=== PATIENT | female | born 1955 | race Caucasian/White ===

== ENCOUNTER → 2016-04-11 | Day surgery (SDC) | payer BC ==
[2016-04-09 10:53] VITALS: BMI 24.2
[~2016-04-11] MED LIST: ALBUTEROL NEB (CONC) 2.5 MG/0.5 ML INHALATION ONE; LACTATED RINGERS 1,000 ML IV ONE; LACTATED RINGERS 1,000 ML IV SCH; LIDOCAINE 1% 20 ML VIAL (10MG/ML) FOR IV START INTRADERMA ONE; LIDOCAINE 1% INJ 10MG/ML (20 ML MDV) ONE; LIDOCAINE 2% (PF) 20 MG/ML 10ML INHALATION ONE; PROPOFOL 10 MG/ML 20 ML VIAL IV ONE; Pre Op ABX Message 1 EACH MISC MISCELLANE ONE; fentaNYL (PF) 50 MCG/ML 2 ML AMP ONE
[2016-04-11 11:07] VITALS: TEMP 97.2
[2016-04-11 12:31] VITALS: BP 125/79; PULSE 84; RESP 16
[2016-04-11 17:51] LABS: RBC, Body Fluid 9 /uL
--- NOTE | 2016-04-11 19:36 | PCN ---
DATE OF PROCEDURE: OPERATIVE REPORT: Bronchoscopy and bronchoalveolar lavage of the right middle lobe. PREOPERATIVE DIAGNOSIS: Recurrent right middle lobe pneumonia. POSTOPERATIVE DIAGNOSIS: Right middle lobe syndrome. ANESTHESIA: Patient was given IV conscious sedation. Please refer to dictation and documentation from [employer]. PROCEDURE: Patient was prepared according to the bronchoscopy protocol. She was placed in a supine position. We were able to monitor her pulse oximetry continuously. Blood pressure was intermittently monitored. Cardiac rhythm was continuously monitored. After adequate IV conscious sedation, the right naris was anesthetized using a few mL of lidocaine. Then the bronchoscope was inserted through the right naris down to the area of the vocal cord. Vocal cords were noted to be patent and no evidence of any abnormality around the vocal cords. Lidocaine was applied over the vocal cords and the bronchoscope was advanced further down and a thorough examination was done of the trachea, clara, right upper lobe, right middle lobe, right lower lobe, left upper lobe, lingula, and left lower lobe. No significant abnormality except there was a slitlike narrowing of the right middle lobe bronchus, however, I was able to advance the bronchoscope into the right middle lobe, and I visualized easily the lateral segment and the medial segment of the right middle lobe. Lavage of the right middle lobe was performed, and there was very minimal purulent secretions from the right middle lobe. Examination of the other lobes were unremarkable. Pictures of the right middle lobe were taken, and the findings are consistent with narrow opening of the right middle lobe bronchus and slitlike opening of the bronchus itself which explains her findings on the chest x-ray and recurrent episodes of right middle lobe pneumonia. The procedure was well tolerated. The fluid from the right middle lobe was sent for different diagnostic studies including cytology. Patient will be reassured, and she will be discharged later today. No evidence of any immediate complications.
== END ==
LOC: ORWHC2ENDO 10:37
PROVIDERS: ATTEND Internal Medicine
DX: J18.9 Pneumonia, unspecified organism (principal); J44.9 Chronic obstructive pulmonary disease, unspecified; J45.909 Unspecified asthma, uncomplicated; K21.9 Gastro-esophageal reflux disease without esophagitis; J30.2 Other seasonal allergic rhinitis; Z79.1 Long term (current) use of non-steroidal anti-inflammatories (NSAID); Z79.51 Long term (current) use of inhaled steroids; Z79.52 Long term (current) use of systemic steroids; Z79.899 Other long term (current) drug therapy; Z88.1 Allergy status to other antibiotic agents; Z87.891 Personal history of nicotine dependence
CPT/HCPCS: 94640; 88108; 88305; 89050; 87070; 87205; 87116; 87102; 87206; 31624; 99156; J2001 ×2; J3010; J2704; 99153

== ENCOUNTER → 2017-05-14 | Outpatient (CLI) | payer OTHER ==
[2017-05-14 08:17] LABS: Basophils % (A) 1 %; Eosinophils # (A) 0.2 k/uL (0-0.7); Eosinophils % (A) 4 %; HCT 41.6 % (34.0-46.0); HGB 13.7 gm/dL (11.4-16.0); Lymphocytes # (A) 1.9 k/uL (1.0-4.8); Lymphocytes % (A) 38 %; MCH 30.5 pg (25.0-35.0); MCHC 32.8 g/dL (31.0-37.0); MCV 93.1 fL (80.0-100.0); Mean Platelet Volume 7.7; Monocytes # (A) 0.3 k/uL (0-1.0); Monocytes % (A) 5 %; Neutrophils # (A) 2.5 k/uL (1.3-7.7); Neutrophils % (A) 50 %; Platelet Count 275 k/uL (150-450); RBC 4.47 m/uL (3.80-5.40); RDW 12.7 % (11.5-15.5)
[2017-05-14 08:34] LABS: ALT 29 U/L (9-52); AST 19 U/L (14-36); Albumin 4.2 g/dL (3.5-5.0); Alkaline Phosphatase 73 U/L (38-126); Anion Gap 8 mmol/L; Blood Urea Nitrogen 15 mg/dL (7-17); Calcium 9.6 mg/dL (8.4-10.2); Carbon Dioxide 31 mmol/L (22-30); Chloride 104 mmol/L (98-107); Glucose 83 mg/dL (74-99); Potassium 4.8 mmol/L (3.5-5.1); Sodium 143 mmol/L (137-145); Total Bilirubin 0.6 mg/dL (0.2-1.3)
[2017-05-14 11:07] LABS: Glucose 2 Hour 88 mg/dL
[2017-05-14 22:07] LABS: Hemoglobin A1C 5.4 % (4.0-6.0)
== END | disposition home or self-care (01) ==
LOC: LABWHC1 07:59
PROVIDERS: ATTEND Family Medicine
DX: R73.9 Hyperglycemia, unspecified (principal)
CPT/HCPCS: 36415; 80053; 82947; 82950; 83036; 83525; 85025

== ENCOUNTER → 2018-07-13 | Outpatient (CLI) | payer OTHER ==
--- NOTE | 2018-07-13 08:16 | CT ---
EXAMINATION TYPE: CT chest wo/w con DATE OF EXAM: 07/13/2018 COMPARISON: None HISTORY: 62-year-old female Chest wall pain by xiphoid TECHNIQUE: Contiguous axial scanning of the chest after the administration of 100 mL of Isovue 300. Coronal/sagittal reconstructions performed. CT DLP: 403.2mGycm. Automatic exposure control utilized for a dose reduction. FINDINGS: Heart normal size without pericardial effusion. Aorta normal caliber with moderate atherosclerotic arch calcifications and aberrant right subclavian artery taking a retroesophageal course. No thoracic lymphadenopathy by CT size criteria. Mild diffuse bronchial wall thickening and minimal centrilobular emphysema. Couple calcified granulomas at the right midlung. 4 mm left midlung pulmonary nodule seems to be located along the major fissure. No consolidation or pleural effusion. Small to moderate-sized hiatal hernia. Hilar splenule. Tiny calcified granuloma inferior right liver lobe. Bones: Degenerative disc disease in the visualized lumbar spine. Accentuated kyphosis at the thoracol umbar junction. No specific abnormality is identified at the level of the xiphoid process. IMPRESSION: 1. COPD with very mild emphysema. 2. Prior granulomatous disease. Noncalcified 4 mm left mid lung pulmonary nodule is located along the major fissure and probably represents a pulmonary lymph node. 1 year follow-up CT recommended to devin ssess. 3. No specific abnormality identified at the level of the xiphoid process. 4. A small to moderate sized hiatal hernia. Incidental aberrant right subclavian artery which takes a retroesophageal course.
== END | disposition home or self-care (01) ==
LOC: RADCTMAIN 07:27
PROVIDERS: ATTEND Family Medicine
DX: J43.9 Emphysema, unspecified (principal); R91.1 Solitary pulmonary nodule
CPT/HCPCS: 71270; Q9967

== ENCOUNTER → 2019-10-10 | Outpatient (CLI) | payer MEDICARE ==
--- NOTE | 2019-10-10 15:36 | CT ---
EXAMINATION TYPE: CT chest w con DATE OF EXAM: 10/10/2019 COMPARISON: CT chest July 13, 2018. HISTORY: Follow up scan CT DLP: 160.9 mGycm. Automated Exposure Control for Dose Reduction was Utilized. TECHNIQUE: CT scan of the thorax is performed following with IV Contrast, patient injected with 100 mL of Isovue 300. FINDINGS: LUNGS: Stable small bleb left upper lobe axial image 20. Stable 4 x 2 mm left mid lung nodule along f issure axial image 34. Stable 3 mm superior left lower lobe nodule axial image 39. Stable 4 to 5 mm c alcified right mid lung nodule or granuloma axial image 33. No new greater than 4 mm noncalcified pu lmonary nodules or masses. There is no pleural effusion or pneumothorax seen bilaterally. Persistent focal linear scarring right mid to lower lung medially near axial image 37 with some adjacent pleura l thickening inferior anterior aspect slightly more nodular axial image 44 unchanged from prior. The tracheobronchial tree is patent. MEDIASTINUM: There are no new greater than 1 cm hilar or mediastinal lymph nodes. No cardiomegaly o r pericardial effusion is seen. Stable small sized hiatal hernia. Persistent left arch with aberrant right brachiocephalic artery running posterior to the esophagus, normal variant. Persistent fairly s evere mixed plaque in the left subclavian artery without greater than 50% significant stenosis OTHER: Single calcification in the liver axial image 99, right hepatic lobe. IMPRESSION: No new or enlarging noncalcified nodules. Findings presumed benign.
== END | disposition home or self-care (01) ==
LOC: RADCTMAIN 14:10
PROVIDERS: ATTEND Internal Medicine
DX: R91.1 Solitary pulmonary nodule (principal); Z88.1 Allergy status to other antibiotic agents; Z88.8 Allergy status to other drugs, medicaments and biological substances
CPT/HCPCS: 71260; Q9967

== ENCOUNTER → 2023-01-14 | Outpatient (CLI) | payer MEDICARE ==
--- NOTE | 2023-01-14 13:03 | CTL ---
EXAMINATION TYPE: CT Low Dose Lung DATE OF EXAM ORDERED: 01/14/2023 HISTORY: 67-year-old female former smoker quit 10 years ago with 2 year pack history. Lung cancer scr eening CT DLP: 56.[address] CTDI: 1.7 mGy Automated exposure control for dose reduction was used. SCREENING VISIT: Baseline COMPARISON: 10/10/2019 TECHNIQUE: Low dose computed tomography scan was performed through the chest with coronal and sagitta l reconstructions. CT DIAGNOSTIC QUALITY: Satisfactory FINDINGS: The heart is normal size without pericardial effusion. Aorta normal caliber with mild atherosclerotic arch calcifications. There is aberrant right subclavia n artery that takes a retroesophageal course. No thoracic lymphadenopathy by CT size criteria. Mild emphysematous changes present. No consolidation or pleural effusion. Stable calcified granuloma lateral right mid lung. Stable for malleolar pulmonary nodule medial right upper lobe, axial image 16. 3 mm pulmonary nodule medial left midlung, axial image 27 is stable. A couple 3 mm pulmonary nodules left lower lobe, axial image 32. Stable 4 mm anterior right lower lung pulmonary nodule, axial image 34. Calcified granuloma redemonstrated lateral right midlung. There is a small to moderate-sized hiatal hernia. Otherwise, visualized upper abdomen shows prominent congestive material within the stomach. Bones: Slight accentuated lower thoracic kyphosis with scattered mild degenerative disc disease. IMPRESSION: 1. LungRADS 2, benign. A few stable 4 mm and smaller pulmonary nodules, one of which represents a ted cified granuloma. 2. COPD with mild emphysema. 3. Incidental aberrant right subclavian artery that takes a retroesophageal course. 4. Small to moderate sized hiatal hernia. CT LUNG RAD AND CT CHEST RECOMMENDATION: Lung-Rad 2 Benign Appearance or Behavior: Continue annual sc reening with LDCT in 12 months. S Modifier (other clinically significant findings): None
== END | disposition home or self-care (01) ==
LOC: RADCTMAIN 10:01
PROVIDERS: ATTEND Internal Medicine
DX: Z12.2 Encounter for screening for malignant neoplasm of respiratory organs (principal); J43.9 Emphysema, unspecified; K44.9 Diaphragmatic hernia without obstruction or gangrene; J84.10 Pulmonary fibrosis, unspecified; R91.8 Other nonspecific abnormal finding of lung field; Z87.891 Personal history of nicotine dependence
CPT/HCPCS: 71271